=== PATIENT | female | born 2000 | race Two or more races ===

== ENCOUNTER → 2022-04-18 | Outpatient (CLI) | payer MEDICAID ==
[~2022-04-18] MED LIST: IOHEXOL 350 MG/ML 100ML IJ ONE
[2022-04-18 11:20] VITALS: BP 103/60
[2022-04-18 11:45] VITALS: BP 115/67
== END | disposition home or self-care (01) ==
LOC: Rad HDHVI 11:06
PROVIDERS: ATTEND Internal Medicine Cardiovascular Disease
DX: R59.9 Enlarged lymph nodes, unspecified (principal); R59.1 Generalized enlarged lymph nodes; R07.89 Other chest pain; I26.99 Other pulmonary embolism without acute cor pulmonale
CPT/HCPCS: 71275; G0463; Q9967

== ENCOUNTER → 2022-04-19 | Outpatient (CLI) | payer MEDICAID | END | disposition home or self-care (01) | LOC: Rad HDHVI 16:08 | PROVIDERS: ATTEND Internal Medicine Cardiovascular Disease | DX: R07.89 Other chest pain (principal); R06.02 Shortness of breath | CPT/HCPCS: 93306 ==

== ENCOUNTER → 2022-04-20 | Outpatient (CLI) | payer MEDICAID ==
[~2022-04-20] VITALS: Ht 157.5 cm; Wt 58.1 kg
== END | disposition home or self-care (01) ==
LOC: Rad HDHVI 15:54
PROVIDERS: ATTEND Internal Medicine Cardiovascular Disease
DX: R07.9 Chest pain, unspecified (principal); R06.02 Shortness of breath; R42 Dizziness and giddiness
CPT/HCPCS: 93017